=== PATIENT | male | born 1985 | race Hispanic/Latino ===

== ENCOUNTER 2016-07-29 09:32 | Emergency (ER) | payer OTHER ==
[2016-07-29 09:32] VITALS: BMI 24.0
[2016-07-29 09:55] VITALS: BP 127/81; PULSE 93; RESP 18; TEMP 98; O2SAT 98
[2016-07-29 10:14] LABS: EOS # 0.1 K/uL (0.0-0.7); HEMATOCRIT 45.5 % (35.0-51.0); LYMPH % 40.3 % (20.0-40.0); MEAN CELL VOLUME 89.9 fL (80.0-94.0); MEAN CORPUSCULAR HEMOGLOBIN 30.1 pg (27.0-31.0); MEAN CORPUSCULAR HGB CONC 33.4 g/dL (33.0-37.0); MEAN PLATELET VOLUME 8.8 fL (7.2-11.7); MONO # 0.3 K/uL (0.0-0.8); MONO % 7.1 % (0.0-10.0); RED CELL DISTRIBUTION WIDTH 13.8 % (11.5-14.5); WHITE BLOOD COUNT 4.9 K/uL (4.8-10.8)
[2016-07-29 10:31] LABS: CHLORIDE 98 mmol/L (98-107); SODIUM 140 mmol/L (132-148)
[2016-07-29 10:32] LABS: POTASSIUM 4.3 mmol/L (3.6-5.2)
[2016-07-29 10:34] LABS: ALB/GLOB RATIO 1.5 (1.0-2.1); ALKALINE PHOSPHATASE 50 U/L (38-126); ALT/SGPT 26 U/L (21-72); AMYLASE 65 U/L (30-110); AST/SGOT 25 U/L (17-59); BILIRUBIN,TOTAL 0.8 mg/dL (0.2-1.3); BLOOD UREA NITROGEN 15 mg/dL (9-20); CALCIUM 9.3 mg/dl (8.6-10.4); CARBON DIOXIDE 30 mmol/L (22-30); GFR AFRICAN-AMERICAN > 60; GLUCOSE,RANDOM 103 mg/dL (75-110); TOTAL PROTEIN 7.7 g/dL (6.3-8.3)
--- NOTE | 2016-07-29 10:34 | C.PDOC ---
History Of Present Illness 30 year old patient complains of accidental exposure to the bodily fluids. 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 Patient denies any other complaints at this time. Time Seen by Provider: 07/29/16 09:33 Chief Complaint (Nursing): Body Fluid Exposure History Per: Patient History/Exam Limitations: no limitations Onset/Duration Of Symptoms: Mins (just prior to evaluation) Current Symptoms Are (Timing): Still Present Severity: None Pain Scale Rating Of: 0 Recent travel outside of the [place]: No Additional History Per: Patient Past Medical History Reviewed: Historical Data, Nursing Documentation, Vital Signs Vital Signs: Last Vital Signs Temp 98 F 07/29/16 09:39 Pulse 93 H 07/29/16 09:39 Resp 18 07/29/16 09:39 BP 127/81 07/29/16 09:39 Pulse Ox 98 07/29/16 11:21 Surgical History: Tonsillectomy Family History: States: Unknown Family Hx - Social History Hx Alcohol Use: No Hx Substance Use: No Review Of Systems Except As Marked, All Systems Reviewed And Found Negative. Constitutional: Negative for: Fever Eyes: Positive for: Other (accidental blood exposure to left eye) Respiratory: Negative for: Shortness of Breath Gastrointestinal: Negative for: Nausea, Vomiting Physical Exam - Physical Exam Appears: Non-toxic, No Acute Distress Skin: Warm, Dry Head: Atraumatic, Normacephalic Eye(s): bilateral: Normal Inspection, PERRL, EOMI Oral Mucosa: Moist Neck: Normal ROM, Supple Extremity: Normal ROM Neurological/Psych: Oriented x3, Normal Speech, Normal Cognition, Normal Motor Gait: Steady ED Course And Treatment - Laboratory Results Result Diagrams: 07/29/16 10:06 07/29/16 10:06 O2 Sat by Pulse Oximetry: 98 (room air) Pulse Ox Interpretation: Normal Medical Decision Making Medical Decision Making: Plan: * Labs Progress: Patient's left eye was washed out with sterile saline. The source patient was tested. Disposition - Disposition Referrals: [facility] [Outside] Disposition: HOME/ ROUTINE Disposition Time: 10:32 Condition: GOOD Additional Instructions: Follow up with Employee [facility] within 1-2 days. 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 - Scribe Statement The provider has reviewed the documentation as recorded by the Scribe Aimee Corbett All medical record entries made by the Scribe were at my direction and personally dictated by me. I have reviewed the chart and agree that the record accurately reflects my personal performance of the history, physical exam, medical decision making, and the department course for this patient. I have also personally directed, reviewed, and agree with the discharge instructions and disposition.
== END 2016-07-29 10:44 | disposition home or self-care (01) ==
LOC: C.ER 09:32
DX: Z77.21 Contact with and (suspected) exposure to potentially hazardous body fluids (principal)